=== PATIENT | female | born 1960 | race Caucasian/White ===

== ENCOUNTER 2017-02-19 12:51 | Inpatient (IN) | payer OTHER, BC ==
[2017-02-19] VITALS (7 sets, daily range): BP systolic 109–139; BP diastolic 68–81; PULSE 64–82; TEMP 36.3–36.6; O2SAT 97–100; Ht 165.1 cm; Wt 63.8 kg
[~2017-02-19] VITALS: Ht 165.1 cm; Wt 63.8 kg
[~2017-02-19 12:51] MED LIST: CEFAZOLIN 2000MG IV PUSH 10 ML IV STA; NURSING VERBAL MED ORDER ONE
[2017-02-19] MEDS ORDERED: LEVO100T PO (13:14)
[2017-02-19] MEDS ORDERED: OXYC-57 PO (13:14)
[2017-02-19] MEDS ORDERED: LIOT5TAB PO (13:14)
[2017-02-19] MEDS ORDERED: CALC500C70 PO (13:15)
[2017-02-19] MEDS ORDERED: MULT-506 PO (13:15)
[2017-02-19] MEDS ORDERED: CYAN100048 PO (13:16)
--- NOTE | 2017-02-19 13:29 | History and Physical ---
History & Physical Date Feb 19, 2017. Chief Complaint Left shoulder and elbow pain History of Present Illness The patient is a 56 year old female with complaints of fracture of the left proximal humerus and radial head after a fall at work. Past Medical/Surgical History thyroidectomy Additional History Hepatic Disease: No Endocrine Disorder: Yes Kidney Disease: No Hypertension: No Heart Disease: No Bleeding Tendencies: No Infectious Diseases: No Allergies Coded Allergies: No Known Allergies (Unverified , 02/19/17) Home Medications Scheduled Calcium/Vitamin D (Os-Dima 500 Plus D), 1 TAB PO DAILY Cyanocobalamin (Vitamin B-12), PO DAILY Levothyroxine Sodium (Synthroid), 1 TAB PO DAILY Liothyronine Sodium (Cytomel), 5 MCG PO DAILY Multivitamin (Multivitamin), 1 TAB PO DAILY Scheduled PRN Oxycodone/Acetaminophen 5MG/325MG (Percocet 5MG/325MG), 1 TABLET PO Q4-6 PRN for Pain Physical Examination Skin: warm/dry Eyes: normal inspection ENT: normal ENT inspection Head: normocephalic Neck: supple Respiratory/Chest: lungs clear Cardiovascular: regular rate, rhythm Extremities: + pertinent finding (LUE: ttp L shoulder and elbow, NVI distally, cr<2) Diagnosis Displaced Left proximal humerus fx and comminuted left radial head Plan of Treatment ORIF Left proximal humerus fx and radial head ORIF vs replacement
[2017-02-19] MEDS ORDERED: FENTANYL CITRATE INJ 50 MCG/1 ML 2 ML VIAL ONE ×2 (13:37→17:44)
[2017-02-19] MEDS ORDERED: MIDAZOLAM HCL 1 MG/ML 2ML VIAL ONE ×2 (13:37→14:44)
[2017-02-19] MEDS ORDERED: ROPIVACAINE 0.5% 5 MG/ML 30 ML VIAL ONE (14:25)
[2017-02-19] MEDS ORDERED: BUPIVACAINE 0.5 % 5 MG/1 ML MPF 30ML VIAL ONE (14:29)
[2017-02-19] MEDS ORDERED: FENTANYL CITRATE INJ 50 MCG/1 ML 2 ML VIAL IV PRN (14:45)
[2017-02-19] MEDS ORDERED: EpHEDrine SULFATE INJ 50 MG/ML AMP IV PRN (14:45)
[2017-02-19] MEDS ORDERED: HYDROmorphone INJ 0.5 MG/0.5 ML SYR IV PRN (14:45)
[2017-02-19] MEDS ORDERED: ATROPINE SULFATE 0.1 MG/ML 5ML SYR IV PRN (14:45)
[2017-02-19] MEDS ORDERED: ONDANSETRON INJ 2 MG/ML 2 ML VIAL IV PRN ×2 (14:45→18:00)
[2017-02-19] MEDS ORDERED: ROCURONIUM BROMIDE 10 MG/ML 5 ML VIAL IV ONE (15:38)
[2017-02-19] MEDS ORDERED: ONDANSETRON INJ 2 MG/ML 2 ML VIAL ONE (15:38)
[2017-02-19] MEDS ORDERED: DEXAMETHASONE SOD INJ 4 MG/ML VIAL ONE (15:38)
[2017-02-19] MEDS ORDERED: PROPOFOL IV EMULSION 10 MG/ML 20 ML VIAL IV ONE (15:38)
[2017-02-19] MEDS ORDERED: LIDOCAINE HCL 2% 2 ML VIAL (20MG/ML) ONE (15:38)
[2017-02-19] MEDS ORDERED: PHENYLEPHRINE 100MCG/ML 5ML SYR ONE (16:23)
[2017-02-19] MEDS ORDERED: EpHEDrine SULFATE 50MG/5ML SYR ONE (16:23)
--- NOTE | 2017-02-19 17:22 | DIAGNOSTIC IMAGING REPORT ---
L HUMERUS MIN 2 VIEW ROUTINE CLINICAL HISTORY: 56 years-old Female presenting with LT ORIF. TECHNIQUE: 4 fluoroscopic spot image(s) obtained as part of an intraoperative procedure. COMPARISON: None. FINDINGS/IMPRESSION: Prosthetic radial head. Plate and screw fixation of the proximal humeral metadiaphysis across the left humeral surgical neck fracture. Humeral head remains congruent of the glenohumeral joint. Elbow joint congruent. Please see surgical report for further details. Fluoroscopy dosage (mGy): 4.09. Fluoroscopy time: 112.13 seconds. Number of fluoroscopic spot images: 4. Electronically signed by: Td Frey M.D. 02/19/2017 5:21 PM Dictated Date/Time: 02/19/2017 5:20 PM
--- NOTE | 2017-02-19 17:29 | [facility] Operative Report ---
Operative Report Operative Date Feb 19, 2017. Pre-Operative Diagnosis Left proximal humerus fracture, comminuted left radial head fracture Post-Operative Diagnosis Same Procedure(s) Performed Left Open Reduction Internal Fixation Humerus Fracture, Left Radial Head Replacement Surgeon Dr. Td Alfaro Surgery Aide Surgeon(s) Tyler PAULSON Estimated Blood Loss 100ML Findings Severe comminution and articular damage to the radial head fragment the radial head was in 4 pieces one of the 4 pieces was irreparable and the other 3 fragments were displaced off of the radial shaft Specimens none per surgeon Drains none Anesthesia Gen. with interscalene block Complication(s) None Disposition Recovery Room / PACU Indications The patient is a 56-year-old female who sustained a fall while at work. This happened on the summer. She was seen at another clinic and apparently there was a shoe with getting work, approval. She subsequently was not contacted by this in clinic and sought care with us. She has a displaced angulated proximal humerus fracture as well as a comminuted left radial head fracture. I recommended open reduction internal fixation for the proximal humerus fracture and ORIF versus radial head replacement for the radial head fracture. Description of Procedure Risks, benefits and alternatives to surgery including, but not limited to, infection DVT, pain, stiffness, need for revision surgery, failure to relieve all symptoms, damage to blood vessels, damage to nerves, risk of anesthesia were discussed with the patient and they wished to proceed. The patient was identified. Laterality was confirmed and marked. The patient received a preoperative antibiotic as well as an interscalene block. They were transferred to the operating room and placed in the supine position and induced into general endotracheal anesthesia per the anesthesia staff. There were then placed in a slight beachchair position. All pressure points were well padded.. We confirmed that we're able to achieve proper visualization of the fracture under fluoroscopy the arm was then prepped and draped in the usual standard manner with ChloraPrep. I made a longitudinal incision just lateral to the coracoid, sharply incising through the skin and utilizing Bovie electrocautery to achieve hemostasis. I identified the cephalic vein and mobilized it laterally with the deltoid. I mobilize the pectoralis and mobilize this medially releasing a small portion of the upper border of the pec tendon to improve visualization. I then identified and mobilized the conjoined tendon. I identified the long head of the biceps tendon. Holding traction on the arm I then reduced the fracture. I then positioned a standard size Synthes proximal humerus locking plate into position. A pleasant nonlocking screw into the oblong hole and adjusted the height of the plate as necessary. I then placed 2 locking screws into the humeral head while holding the reduction. I placed an additional locking screw distally. I then took the arm through live fluoroscopy to ensure that we maintained good reduction and plate placement. I was satisfied with reduction of the fracture and the alignment of the plate. I then placed 2 additional locking screws distally and placed additional locking screws proximally into the humeral head. I then again confirmed reduction on AP and scapular Y views and I was satisfied with the reduction as well as the screw lengths. I thoroughly irrigated the wound. The deltopectoral interval was closed with interrupted #1 Ethibond suture. The subcutaneous tissue was closed with interrupted 2-0 Vicryl suture. The skin was closed with running 3-0 nylon. I made a longitudinal incision over the lateral aspect of the elbow. I sharply incised through the skin and then used Bovie electrocautery to achieve hemostasis. I then made a direct lateral approach to the elbow incising through the common extensor fascia in line with its fibers. I identified the radial head fracture and it was severely comminuted with significant cartilage loss. There were 4 fragments to the radial head fracture one of the 4 was severely comminuted and essentially irreparable the other 3 fragments had injury to the cartilage. One of those fragments had been dislocated out of the elbow. I did not feel it was amenable to open reduction and internal fixation. I therefore proceeded with a radial head replacement. I made a cleanup cut of the proximal aspect of the radius. I then sequentially reamed and then trialed. Sequentially trialed up in height until I had good stability and good fit into the radial humeral joint. I confirmed appropriate height on fluoroscopy. The trial components were removed. The wound was thoroughly irrigated. I then implanted my definitive implants. The definitive implants were a [employer] Explor Stem: 8 x 28 Head: 14 x 22 I locked the head piece into position with a set screw. Then a again confirmed good height and positioning and was able to take the elbow through a full normal range of motion. The wound was again thoroughly irrigated. The annular ligament was closed with interrupted #1 Vicryl suture. The fascia was closed with interrupted #1 Vicryl suture. The subcutaneous tissues closed with interrupted 2-0 Vicryl suture. The skin was closed with a running 3-0 nylon. A sterile dressing was applied and a posterior splint placed. A sterile dressing was applied. A sling was placed. All needle and sponge counts were correct at the end of the procedure. The patient was transferred to the PACU in stable condition without apparent complication. The PA-C was necessary for assistance with procedure for assistance in positioning, I attest to the content of the Intraoperative Record and any orders documented therein. Any exceptions are noted below.
[2017-02-19] MEDS ORDERED: MoRPHine SULFATE 2 MG/ML CARP IV PRN (18:00)
[2017-02-19] MEDS ORDERED: MAGNESIUM HYDROXIDE SUSP 30 ML UDC PO PRN (18:00)
[2017-02-19] MEDS ORDERED: ALUMINUM/MAGNESIUM/SIMETH (MAALOX MAX) 30 ML UDC PO PRN (18:00)
[2017-02-19] MEDS ORDERED: MoRPHine SULFATE 4 MG/ML 1 ML CARP\\VIAL IV PRN (18:00)
--- NOTE | 2017-02-19 18:26 | Anesthesiology Progress Note ---
Anesthesia Post Op Note Date & Time Feb 19, 2017 at 18:26 Vital Signs Pain Intensity: 0 Vital Signs Past 12 Hours Date Time Temp Pulse Resp B/P (MAP) Pulse Ox O2 Delivery O2 Flow Rate FiO2 02/19/17 18:19 69 14 02/19/17 18:19 70 14 100 02/19/17 18:16 113/76 02/19/17 18:14 62 13 02/19/17 18:14 61 13 100 02/19/17 18:11 120/66 02/19/17 18:09 70 16 02/19/17 18:09 71 16 100 02/19/17 18:08 66 16 02/19/17 18:08 67 16 100 02/19/17 18:06 114/64 02/19/17 18:03 62 15 100 02/19/17 18:03 61 15 02/19/17 18:01 118/64 02/19/17 17:58 69 12 100 02/19/17 17:58 68 12 02/19/17 17:56 116/65 02/19/17 17:54 120/68 02/19/17 17:53 36.0 72 16 120/68 100 Oxymask 10 02/19/17 13:17 72 20 139/81 (100) 99 Room Air Notes Mental Status: alert / awake / arousable, participated in evaluation Pt Amnestic to Procedure: Yes Nausea / Vomiting: adequately controlled Pain: adequately controlled Airway Patency, RR, SpO2: stable & adequate BP & HR: stable & adequate Hydration State: stable & adequate Anesthetic Complications: no major complications apparent
[2017-02-19] MEDS: D5W AND 1/2NSS + 20MEQ KCL 1,000 ML IV SCH (20:51)
[2017-02-19] MEDS: SENNA 8.6 MG TAB PO SCH (21:23)
[2017-02-19] MEDS: ACETAMINOPHEN 500 MG TAB PO SCH (21:23)
[2017-02-19] MEDS: CEFAZOLIN IV 1,000 MG in SYRINGE 0 ML IV SCH (23:30)
[2017-02-20] MEDS: OXYCODONE HCL IR 5 MG TAB (IMMEDIATE RELEASE) PO PRN ×5 (02:28→20:54)
[2017-02-20 03:43] VITALS: BP 105/67; PULSE 81; TEMP 36.9; O2SAT 97
[2017-02-20] MEDS: LEVOTHYROXINE 100 MCG TAB PO SCH (05:27)
[2017-02-20] MEDS: ACETAMINOPHEN 500 MG TAB PO SCH ×3 (05:28→20:54)
[2017-02-20] MEDS: D5W AND 1/2NSS + 20MEQ KCL 1,000 ML IV SCH ×2 (05:28→16:42)
--- NOTE | 2017-02-20 07:24 | Orthopedic Progress Note ---
Orthopedic Progress Note Date of Service Feb 20, 2017. Subjective Post OP Day: 1 Reports: feeling well, pain controlled w PO medications, Denies: complaints, chest pain, SOB, nausea / vomiting, light headedness, calf pain Objective calves soft nontender, N/V intact, capillary refill less than 2 sec., dressing C /D/I, A&O x3, toes mobile Date Time Temp Pulse Resp B/P (MAP) Pulse Ox O2 Delivery O2 Flow Rate FiO2 02/20/17 03:43 36.9 81 14 105/67 (80) 97 Room Air 02/19/17 23:40 Room Air 02/19/17 23:22 36.6 82 15 109/69 (82) 97 Room Air 02/19/17 21:54 36.5 65 16 123/76 (92) 98 Room Air 02/19/17 20:45 36.6 76 16 122/75 (91) 97 Room Air 02/19/17 19:59 36.3 68 16 120/74 (89) 100 Nasal Cannula 2.0 02/19/17 19:20 36.5 68 16 121/68 (85) 100 Nasal Cannula 2.0 02/19/17 18:50 36.6 64 16 116/73 (87) 100 Nasal Cannula 2.0 02/19/17 18:50 100 Nasal Cannula 2.0 02/19/17 18:50 100 Nasal Cannula 1.0 02/19/17 18:37 64 16 02/19/17 18:37 65 16 100 02/19/17 18:36 117/66 02/19/17 18:32 61 15 100 02/19/17 18:32 61 15 02/19/17 18:31 115/67 02/19/17 18:31 36.6 02/19/17 18:27 64 13 02/19/17 18:27 65 13 100 02/19/17 18:26 108/65 02/19/17 18:25 72 14 02/19/17 18:25 75 14 100 02/19/17 18:21 119/67 02/19/17 18:20 66 12 100 02/19/17 18:20 66 12 02/19/17 18:19 69 14 02/19/17 18:19 70 14 100 02/19/17 18:16 113/76 02/19/17 18:14 62 13 02/19/17 18:14 61 13 100 02/19/17 18:11 120/66 02/19/17 18:09 70 16 02/19/17 18:09 71 16 100 02/19/17 18:08 66 16 02/19/17 18:08 67 16 100 02/19/17 18:06 114/64 02/19/17 18:03 62 15 100 02/19/17 18:03 61 15 02/19/17 18:01 118/64 02/19/17 17:58 69 12 100 02/19/17 17:58 68 12 02/19/17 17:56 116/65 02/19/17 17:54 120/68 02/19/17 17:53 36.0 72 16 120/68 100 Oxymask 10 02/19/17 13:17 72 20 139/81 (100) 99 Room Air Assessment & Plan Assessment: POD#1 ORIF left Proximal humerus, radial head replacement. Plan: DVT - ASA NO PT/OT Medical Management Discharge - Home with self care. Inhouse Planning Pain Management: Oxy IR Discharge Planning Discharge Planning: home
[2017-02-20] MEDS: LIOTHYRONINE SODIUM 5 MCG TAB PO SCH (07:44)
[2017-02-20 07:53] VITALS: BP 112/72; PULSE 82; TEMP 36.7; O2SAT 97
[2017-02-20 08:12] VITALS: O2SAT 97
[2017-02-20] MEDS: ASPIRIN 81 MG ECTAB PO SCH (09:26)
[2017-02-20] MEDS: MULTIVITAMIN TAB PO SCH (09:26)
[2017-02-20] MEDS: CEFAZOLIN IV 1,000 MG in SYRINGE 0 ML IV SCH (09:28)
[2017-02-20] MEDS ORDERED: RXC5 PO (11:19)
[2017-02-20] MEDS ORDERED: ASPEC81 PO (11:19)
[2017-02-20] MEDS ORDERED: ACET-24 PO (11:19)
--- NOTE | 2017-02-20 11:29 | Discharge Instructions ---
Discharge Instructions Date of Service Feb 20, 2017. Admission Reason for Admission: Left Humerus Unspecified Upper-End Fracture Discharge Discharge Diagnosis / Problem: Left Humeral Head Fracture; Left Radial Head Fracture Discharge Goals Goal(s): Decrease discomfort, Improve function Activity Recommendations Activity Limitations: per Instructions/Follow-up section Weightbearing Status: Left non-weightbearing (Left upper extremity) . Instructions / Follow-Up Instructions / Follow-Up Keep splint/dressing clean and dry You can do range of motion with your wrist and fingers as able. No active range of motion with your left shoulder at this time Use sling at all times for now until told otherwise. Call the office with any questions or if you are having increased pain, swelling , drainage, or fever of 101.5 or greater. Follow up with Dr Alfaro in 10-14 days. Call for appointment. [phone] Current Hospital Diet Patient's current hospital diet: Regular Diet Discharge Diet Recommended Diet: Regular Diet Procedures Procedures Performed: Left Open Reduction Internal Fixation Humerus Fracture, Left Radial Head Replacement Pending Studies Studies pending at discharge: no Medical Emergencies . Who to Call and When: Medical Emergencies: If at any time you feel your situation is an emergency, please call 911 immediately. . Non-Emergent Contact Non-Emergency issues call your: Surgeon Call Non-Emergent contact if: temperature is above 101.5, your pain is not controlled, your pain is worsening, wound has increased drainage, wound has increased redness . "Provider Documentation" section prepared by Tyler Branch. . VTE Core Measure Inpt VTE Proph given/why not?: Other Anticoagulation, T.E.D. Stockings, SCD's [place] Drug Monitoring Program Search Results: patient reviewed within database, no issues identified
[2017-02-20 11:37] VITALS: BP 110/74; PULSE 83; TEMP 36.6; O2SAT 97
[2017-02-20 15:06] VITALS: BP 108/67; PULSE 80; TEMP 36.9; O2SAT 95
[2017-02-20] MEDS: SENNA 8.6 MG TAB PO SCH (20:53)
[2017-02-20 23:14] VITALS: BP 112/64; PULSE 81; TEMP 37.2; O2SAT 95
[2017-02-21] MEDS: OXYCODONE HCL IR 5 MG TAB (IMMEDIATE RELEASE) PO PRN ×3 (01:08→09:54)
[2017-02-21] MEDS: D5W AND 1/2NSS + 20MEQ KCL 1,000 ML IV SCH (01:08)
[2017-02-21] MEDS: LEVOTHYROXINE 100 MCG TAB PO SCH (05:27)
[2017-02-21] MEDS: ACETAMINOPHEN 500 MG TAB PO SCH (05:28)
--- NOTE | 2017-02-21 07:22 | Orthopedic Progress Note ---
Orthopedic Progress Note Date of Service Feb 21, 2017. Subjective Post OP Day: 2 Reports: feeling well, pain controlled w PO medications, Denies: complaints, chest pain, SOB, nausea / vomiting, light headedness, calf pain Objective N/V intact, dressing C/D/I, A&O x3 Date Time Temp Pulse Resp B/P (MAP) Pulse Ox O2 Delivery O2 Flow Rate FiO2 02/20/17 23:14 37.2 81 17 112/64 (80) 95 Room Air 02/20/17 22:12 Room Air 02/20/17 15:06 36.9 80 18 108/67 (81) 95 Room Air 02/20/17 11:37 36.6 83 14 110/74 (86) 97 Room Air 02/20/17 08:12 97 Room Air 02/20/17 07:53 36.7 82 14 112/72 (85) 97 Room Air 02/20/17 07:50 Room Air Assessment & Plan Assessment: POD#2 ORIF left Proximal humerus, radial head replacement. Plan: DVT - ASA NO PT/OT Medical Management Discharge - Home with self care. Discharge Planning Discharge Planning: home
[2017-02-21 07:30] VITALS: BP 115/77; PULSE 81; TEMP 36.8; O2SAT 95
[2017-02-21] MEDS: ASPIRIN 81 MG ECTAB PO SCH (09:02)
[2017-02-21] MEDS: LIOTHYRONINE SODIUM 5 MCG TAB PO SCH (09:02)
[2017-02-21] MEDS: MULTIVITAMIN TAB PO SCH (09:02)
[2017-02-21 10:03] VITALS: BP 115/77; PULSE 81; TEMP 36.8; O2SAT 95
--- NOTE | 2017-02-23 14:12 | DISCHARGE SUMMARY ---
DISCHARGE DIAGNOSES: 1. Left proximal humerus fracture. 2. Comminuted left radial head fracture. SECONDARY DIAGNOSIS: Hypothyroidism. CONSULTS: None. COMPLICATIONS: None. PROCEDURES: 1. Left open reduction and internal fixation of proximal humerus fracture. 2. Left radial head replacement by Dr. Alfaro on 02/19/2017. BRIEF HISTORY: As dictated in the history and physical. HOSPITAL SUMMARY: The patient was admitted on the above noted date and had the above-noted surgery performed, which she tolerated well. On her first postoperative day, she was feeling well, pain was controlled and she had no complaints. Calves were soft, nontender, and neurovascularly intact. Dressings clean, dry and intact. Toes were mobile. Vital signs were stable. She was afebrile and she was continued on pain management and DVT prophylaxis with aspirin and plans for no PT or OT for the left upper extremity. She later was having some difficulty with some pain. She was seen that afternoon and the nerve block was wearing off and was still requiring some IV morphine. She was continued on her protocol and was otherwise remaining stable. By 02/21/2017, she was feeling well and pain was controlled. Dressings were clean, dry and intact. Neurovascularly intact. She was alert and oriented x3. Vital signs were stable. She was afebrile and it was felt she could be discharged to home. For further review, please see chart. LAB AND X-RAY DATA: As per chart. DISCHARGE INSTRUCTIONS: The patient was discharged home in satisfactory condition on 02/21/2017. DIET: Regular. ACTIVITY: Nonweightbearing in the left upper extremity. Use a sling for comfort. Follow instructions including keep the splint and dressing clean and dry, range of motion with the wrist and fingers as able. No active range of motion with left shoulder at this time. Use sling at all times and to call the office with any questions or having increased pain, swelling, drainage, or fever of 101-105 or greater. Follow up with Dr. Hyde in 10-14 days. DISCHARGE MEDICATIONS: Acetaminophen 1000 mg p.o. q. 8 hours for 14 days, aspirin 81 mg p.o. daily, and oxycodone 5-10 mg p.o. q. 4 hours p.r.n. Resume home meds as listed and stop taking Percocet.
== END 2017-02-21 11:00 | disposition home or self-care (01) | DRG 493 ==
LOC: C.ACU 12:51 → C.MSN 18:04 → ENRESERV 18:30
PROVIDERS: ADMIT Orthopaedic Surgery; ATTEND Orthopaedic Surgery
PROC: 0PSD04Z Reposition Left Humeral Head with Internal Fixation Device, Open Approach (ICD-10-PCS; principal; 2017-02-19 08:15)
PROC: 0PRJ0JZ Replacement of Left Radius with Synthetic Substitute, Open Approach (ICD-10-PCS; principal; 2017-02-19 08:15)
DX: S52.122A Displaced fracture of head of left radius, initial encounter for closed fracture (principal); S42.202A Unspecified fracture of upper end of left humerus, initial encounter for closed fracture; W19.XXXA Unspecified fall, initial encounter; Y99.0 Civilian activity done for income or pay; E89.0 Postprocedural hypothyroidism; Z85.850 Personal history of malignant neoplasm of thyroid; Z79.899 Other long term (current) drug therapy